=== PATIENT | male | born 1970 | race African-American/Black ===

== ENCOUNTER 2025-04-01 19:04 | Emergency (ER) | payer MEDICAID ==
[~2025-04-01] VITALS: Ht 167.6 cm; Wt 87.0 kg
[2025-04-01 19:06] VITALS: O2SAT 99
[2025-04-01 19:34] VITALS: BP 146/77; PULSE 84; RESP 16; TEMP 36.9; O2SAT 97
[2025-04-01] MEDS ORDERED: BO1 TP (19:44)
== END 2025-04-01 20:06 | disposition home or self-care (01) ==
LOC: ER 19:04
DX: Z48.00 Encounter for change or removal of nonsurgical wound dressing (principal)
CPT/HCPCS: 99282; Z7610